=== PATIENT | female | born 1955 | race Caucasian/White ===

== ENCOUNTER → 2016-06-19 | Outpatient (CLI) | payer OTHER ==
[~2016-06-19] MED LIST: ASPIR 8181 MG PO; BREO INH; BUMEX 1MG TABLET1 MG PO; CARAFATE 1 GM TA1 GM PO; DIGOX125 MCG PO; DIOVAN40 MG PO; ENSURE LIQUID237 ML PO; ENSURE ORIGINA237 ML PO; ENTRESTO PO; FERROUS SULFAT325 M2 PO; FLOMAX 0.4 MG0.4 MG PO; FUROSEMIDE20 MG PO; HYDROCODON-ACE1 EAC2 PO; IMDUR ER TAB 3030 MG PO; INCRUSE ELLI62.5 MCG INH; ISOSORBIDE DINI30 MG PO; LASIX20 MG PO; LEVAQUIN750 MG PO; LIPITOR TAB 2020 MG PO; LORTAB 7.5-3251 EACH PO; MAGIC MOUTHWASH PO; MEGACE 400400 MG/10 PO; METOPROLOL TART50 MG PO; MYCOSTATIN100000 UTS PO; NITROSTAT 0.40.4 MG SL; OMEPRAZOLE40 MG PO; OMNICEF 300 MG300 MG PO; PREDNISONE10 MG PO; PROTONIX40 MG PO; RANEXA500 MG PO; REMERON 15 MG T15 MG PO; SPIRIVA18 MCG INH; SPIRONOLACTONE25 MG PO; THEOPHYLLINE400 MG PO; VENTOLIN HFA 66.7 GM INH; VENTOLIN/PROVE0.5 ML INH
== END ==
LOC: HEART 5 09:22
DX: I51.81 Takotsubo syndrome (principal); I20.9 Angina pectoris, unspecified; R06.02 Shortness of breath
CPT/HCPCS: 93306

== ENCOUNTER → 2016-07-02 | Outpatient (CLI) | payer OTHER ==
[2016-07-02 13:45] LABS: BUN/CREATININE RATIO 20 (0-10)
== END ==
LOC: LAB 12:16
PROVIDERS: Physician Assistant
DX: I10 Essential (primary) hypertension (principal); I25.10 Atherosclerotic heart disease of native coronary artery without angina pectoris; I42.0 Dilated cardiomyopathy; I50.22 Chronic systolic (congestive) heart failure; I51.81 Takotsubo syndrome; I95.9 Hypotension, unspecified; R55 Syncope and collapse; R53.83 Other fatigue; R00.2 Palpitations; R06.02 Shortness of breath
CPT/HCPCS: 36415; 80048; 80162; 83735; 84439; 84443; 84481

== ENCOUNTER → 2016-07-02 | Outpatient (CLI) | payer OTHER | LOC: HEART 5 13:25 | DX: R55 Syncope and collapse (principal); R00.2 Palpitations ==

== ENCOUNTER → 2016-07-16 | Outpatient (CLI) | payer OTHER | LOC: RT 11:42 | DX: R55 Syncope and collapse (principal); R00.2 Palpitations ==

== ENCOUNTER 2016-08-17 17:20 | Inpatient (IN) | payer OTHER ==
[~2016-08-17] VITALS: Ht 154.9 cm; Wt 39.5 kg
[2016-08-17] MEDS ORDERED: OMEPRAZOLE40 MG PO (17:51)
[2016-08-17] MEDS ORDERED: ISOSORBIDE DINI30 MG PO (17:51)
[2016-08-17] MEDS ORDERED: DIOVAN40 MG PO (17:52)
[2016-08-17] MEDS ORDERED: SPIRONOLACTONE25 MG PO (17:52)
[2016-08-17] MEDS ORDERED: VENTOLIN HFA 66.7 GM INH (17:53)
[2016-08-17] MEDS ORDERED: VENTOLIN/PROVE0.5 ML INH (17:55)
[2016-08-17] MEDS ORDERED: SPIRIVA18 MCG INH (17:56)
[2016-08-17] MEDS ORDERED: THEOPHYLLINE400 MG PO (17:57)
[2016-08-17] MEDS ORDERED: LASIX20 MG PO (17:57)
[2016-08-17] MEDS ORDERED: RANEXA500 MG PO (17:57)
[2016-08-17] MEDS ORDERED: REMERON 15 MG T15 MG PO (17:58)
[2016-08-17] MEDS ORDERED: BREO INH (17:59)
[2016-08-17] MEDS ORDERED: NITROSTAT 0.40.4 MG SL (18:00)
[2016-08-17 19:01] LABS: HEMOGLOBIN 11.1 gm/dl (12.3-15.3); RED BLOOD COUNT 3.62 M/UL (4.00-5.10); WHITE BLOOD COUNT 18.1 K/UL (4.5-11.0)
[2016-08-18 06:35] LABS: HEMOGLOBIN 11.8 gm/dl (12.3-15.3); RED BLOOD COUNT 3.86 M/UL (4.00-5.10); WHITE BLOOD COUNT 21.8 K/UL (4.5-11.0)
[2016-08-18 07:20] LABS: BUN/CREATININE RATIO 63 (0-10)
[2016-08-19 09:42] LABS: RED BLOOD COUNT 4.19 M/UL (4.00-5.10); WHITE BLOOD COUNT 17.3 K/UL (4.5-11.0)
[2016-08-19 10:01] LABS: BUN/CREATININE RATIO 98 (0-10)
[2016-08-21 09:22] LABS: HEMOGLOBIN 12.4 gm/dl (12.3-15.3); RED BLOOD COUNT 4.11 M/UL (4.00-5.10); WHITE BLOOD COUNT 13.4 K/UL (4.5-11.0)
[2016-08-21 09:42] LABS: BUN/CREATININE RATIO 84 (0-10)
[2016-08-21] MEDS ORDERED: ENSURE LIQUID237 ML PO (16:37)
[2016-08-21] MEDS ORDERED: MEGACE 400400 MG/10 PO (16:41)
[2016-08-21] MEDS ORDERED: PROTONIX40 MG PO (16:42)
[2016-08-21] MEDS ORDERED: PREDNISONE10 MG PO (16:43)
[2016-08-21] MEDS ORDERED: CARAFATE 1 GM TA1 GM PO (16:46)
[2016-08-21] MEDS ORDERED: SPIRIVA18 MCG INH (16:48)
[2016-08-21] MEDS ORDERED: LIPITOR TAB 2020 MG PO (16:48)
[2016-08-21] MEDS ORDERED: LORTAB 7.5-3251 EACH PO (16:49)
[2016-08-21] MEDS ORDERED: ASPIR 8181 MG PO (16:55)
[2016-09-24] MEDS ORDERED: BUMEX 1MG TABLET1 MG PO ×2 (19:12→19:24)
[2016-09-24] MEDS ORDERED: MAGIC MOUTHWASH PO (19:18)
[2016-09-24] MEDS ORDERED: BREO INH (19:22)
[2016-10-06] MEDS ORDERED: OMNICEF 300 MG300 MG PO (17:09)
[2016-10-08] MEDS ORDERED: MEGACE 400400 MG/10 PO (20:34)
== END 2016-08-21 18:50 | disposition home or self-care (01) | DRG 280 ==
LOC: PROG CARE 17:20 → M/S 08-20 21:56
PROVIDERS: ADMIT Emergency Medicine
DX: I21.4 Non-ST elevation (NSTEMI) myocardial infarction (principal); J96.21 Acute and chronic respiratory failure with hypoxia; G92 Toxic encephalopathy; E43 Unspecified severe protein-calorie malnutrition; J96.02 Acute respiratory failure with hypercapnia; J44.1 Chronic obstructive pulmonary disease with (acute) exacerbation; I50.22 Chronic systolic (congestive) heart failure; I42.9 Cardiomyopathy, unspecified; I11.0 Hypertensive heart disease with heart failure; I95.2 Hypotension due to drugs; T42.4X5A Adverse effect of benzodiazepines, initial encounter; T44.7X5A Adverse effect of beta-adrenoreceptor antagonists, initial encounter; Y92.230 Patient room in hospital as the place of occurrence of the external cause; K29.70 Gastritis, unspecified, without bleeding; R53.1 Weakness; E86.0 Dehydration; I25.10 Atherosclerotic heart disease of native coronary artery without angina pectoris; K21.9 Gastro-esophageal reflux disease without esophagitis; F17.210 Nicotine dependence, cigarettes, uncomplicated; R10.30 Lower abdominal pain, unspecified; R68.3 Clubbing of fingers; Z82.49 Family history of ischemic heart disease and other diseases of the circulatory system; Z99.81 Dependence on supplemental oxygen; Z80.3 Family history of malignant neoplasm of breast; Z80.0 Family history of malignant neoplasm of digestive organs; Z79.51 Long term (current) use of inhaled steroids
CPT/HCPCS: 36415; 36600; 71010; 71260; 80048; 80053; 80061; 82550; 82553; 82803; 83036; 83735; 84439; 84443; 84484; 85025; 85027; 93005; 93308; 94640; 94664; J1650; J2270; J2405; J2930; J7030; J7050; Q9962

== ENCOUNTER 2016-08-26 17:52 | Emergency (ER) | payer OTHER ==
[~2016-08-26 17:52] MED LIST changes: -BUMEX 1MG TABLET1 MG PO; -DIGOX125 MCG PO; -ENSURE ORIGINA237 ML PO; -ENTRESTO PO; -FERROUS SULFAT325 M2 PO; -FLOMAX 0.4 MG0.4 MG PO; -FUROSEMIDE20 MG PO; -HYDROCODON-ACE1 EAC2 PO; -IMDUR ER TAB 3030 MG PO; -INCRUSE ELLI62.5 MCG INH; -LEVAQUIN750 MG PO; -MAGIC MOUTHWASH PO; -METOPROLOL TART50 MG PO; -MYCOSTATIN100000 UTS PO; -OMNICEF 300 MG300 MG PO
[2016-08-26 18:55] LABS: HEMOGLOBIN 13.6 gm/dl (12.3-15.3); RED BLOOD COUNT 4.35 M/UL (4.00-5.10); WHITE BLOOD COUNT 23.2 K/UL (4.5-11.0)
[2016-08-26 19:07] LABS: BUN/CREATININE RATIO 52 (0-10)
[2016-09-24] MEDS ORDERED: BUMEX 1MG TABLET1 MG PO ×2 (19:12→19:24)
[2016-09-24] MEDS ORDERED: MAGIC MOUTHWASH PO (19:18)
[2016-09-24] MEDS ORDERED: BREO INH (19:22)
[2016-10-06] MEDS ORDERED: OMNICEF 300 MG300 MG PO (17:09)
[2016-10-08] MEDS ORDERED: MEGACE 400400 MG/10 PO (20:34)
== END 2016-08-26 22:38 | disposition home or self-care (01) ==
LOC: ER1 17:52
PROVIDERS: Emergency Medicine
DX: J44.9 Chronic obstructive pulmonary disease, unspecified (principal); I50.9 Heart failure, unspecified; I11.9 Hypertensive heart disease without heart failure
CPT/HCPCS: 36415; 36600; 71010; 80053; 82550; 82553; 82803; 83874; 83880; 84484; 85025; 93005; 94664; 96374; 96375; 99285; J1940; J1956

== ENCOUNTER 2016-08-27 17:50 | Inpatient (IN) | payer OTHER ==
[~2016-08-27] VITALS: Ht 162.6 cm; Wt 40.4 kg
[2016-08-28 03:40] LABS: BUN/CREATININE RATIO 55 (0-10)
[2016-08-28 03:46] LABS: HEMOGLOBIN 11.4 gm/dl (12.3-15.3); RED BLOOD COUNT 3.76 M/UL (4.00-5.10); WHITE BLOOD COUNT 19.1 K/UL (4.5-11.0)
--- NOTE | 2016-08-28 16:52 | NUR ---
REPORT TO DANIE CHRISTINA FOR TRANSFER TO ROOM [id number]
[2016-08-29 04:42] LABS: HEMOGLOBIN 10.3 gm/dl (12.3-15.3); WHITE BLOOD COUNT 19.9 K/UL (4.5-11.0)
[2016-08-29 04:44] LABS: RED BLOOD COUNT 3.37 M/UL (4.00-5.10)
[2016-08-30 04:39] LABS: HEMOGLOBIN 11.5 gm/dl (12.3-15.3); WHITE BLOOD COUNT 22.9 K/UL (4.5-11.0)
[2016-08-30 04:41] LABS: RED BLOOD COUNT 3.75 M/UL (4.00-5.10)
[2016-08-30 05:01] LABS: BUN/CREATININE RATIO 53 (0-10)
[2016-08-31 03:42] LABS: HEMOGLOBIN 10.9 gm/dl (12.3-15.3); RED BLOOD COUNT 3.57 M/UL (4.00-5.10); WHITE BLOOD COUNT 20.6 K/UL (4.5-11.0)
[2016-08-31 03:57] LABS: BUN/CREATININE RATIO 70 (0-10)
[2016-09-01 03:45] LABS: HEMOGLOBIN 11.2 gm/dl (12.3-15.3); RED BLOOD COUNT 3.7 M/UL (4.00-5.10)
[2016-09-01 04:10] LABS: BUN/CREATININE RATIO 77 (0-10)
[2016-09-01] MEDS ORDERED: ENSURE ORIGINA237 ML PO (16:39)
[2016-09-24] MEDS ORDERED: BUMEX 1MG TABLET1 MG PO ×2 (19:12→19:24)
[2016-09-24] MEDS ORDERED: MAGIC MOUTHWASH PO (19:18)
[2016-09-24] MEDS ORDERED: BREO INH (19:22)
[2016-10-06] MEDS ORDERED: OMNICEF 300 MG300 MG PO (17:09)
[2016-10-08] MEDS ORDERED: MEGACE 400400 MG/10 PO (20:34)
== END 2016-09-01 18:37 | disposition home or self-care (01) | DRG 190 ==
LOC: PROG CARE 17:50 → MED SURG 4 20:59 → PROG CARE 20:59 → MED SURG 4 08-28 16:40
PROVIDERS: Internal Medicine; Physician Assistant Medical; ADMIT Internal Medicine
DX: J44.1 Chronic obstructive pulmonary disease with (acute) exacerbation (principal); J96.21 Acute and chronic respiratory failure with hypoxia; J96.22 Acute and chronic respiratory failure with hypercapnia; I51.81 Takotsubo syndrome; E44.0 Moderate protein-calorie malnutrition; Z99.81 Dependence on supplemental oxygen; I10 Essential (primary) hypertension; K21.9 Gastro-esophageal reflux disease without esophagitis; I25.10 Atherosclerotic heart disease of native coronary artery without angina pectoris; Z87.891 Personal history of nicotine dependence; Z79.82 Long term (current) use of aspirin; Z79.899 Other long term (current) drug therapy; D72.828 Other elevated white blood cell count; D64.9 Anemia, unspecified; R13.14 Dysphagia, pharyngoesophageal phase; K59.09 Other constipation; R78.89 Finding of other specified substances, not normally found in blood
CPT/HCPCS: 36415; 71010; 74000; 80048; 80053; 80162; 81206; 81207; 82607; 82728; 82747; 83540; 83550; 83615; 83735; 83921; 85025; 85027; 85610; 89055; 93005; 94640; 94664; J1650; J2920; J7030

== ENCOUNTER 2016-09-03 08:06 | Observation (INO) | payer OTHER ==
[~2016-09-03] VITALS: Ht 162.6 cm; Wt 40.4 kg
[~2016-09-03 08:06] MED LIST changes: +ENSURE ORIGINA237 ML PO
[2016-09-03] MEDS ORDERED: MYCOSTATIN100000 UTS PO (11:48)
[2016-09-03] MEDS ORDERED: LEVAQUIN750 MG PO (11:49)
[2016-09-03] MEDS ORDERED: PREDNISONE10 MG PO (11:52)
[2016-09-03] MEDS ORDERED: METOPROLOL TART50 MG PO (17:51)
[2016-09-03] MEDS ORDERED: DIGOX125 MCG PO (17:58)
[2016-09-24] MEDS ORDERED: BUMEX 1MG TABLET1 MG PO ×2 (19:12→19:24)
[2016-09-24] MEDS ORDERED: MAGIC MOUTHWASH PO (19:18)
[2016-09-24] MEDS ORDERED: BREO INH (19:22)
[2016-10-06] MEDS ORDERED: OMNICEF 300 MG300 MG PO (17:09)
[2016-10-08] MEDS ORDERED: MEGACE 400400 MG/10 PO (20:34)
== END 2016-09-03 18:25 | disposition home or self-care (01) ==
LOC: M/S 08:39
PROVIDERS: ADMIT Emergency Medicine
DX: R07.9 Chest pain, unspecified (principal); J44.9 Chronic obstructive pulmonary disease, unspecified; I11.0 Hypertensive heart disease with heart failure; I50.9 Heart failure, unspecified; K21.9 Gastro-esophageal reflux disease without esophagitis; I25.10 Atherosclerotic heart disease of native coronary artery without angina pectoris; Z87.891 Personal history of nicotine dependence; Z79.82 Long term (current) use of aspirin; Z79.899 Other long term (current) drug therapy
CPT/HCPCS: G0378; G0379

== ENCOUNTER 2016-12-01 10:20 | Observation (INO) | payer OTHER ==
[~2016-12-01] VITALS: Ht 162.6 cm; Wt 45.9 kg
[~2016-12-01 10:20] MED LIST changes: +BUMEX 1MG TABLET1 MG PO; +DIGOX125 MCG PO; +LEVAQUIN750 MG PO; +MAGIC MOUTHWASH PO; +METOPROLOL TART50 MG PO; +MYCOSTATIN100000 UTS PO; +OMNICEF 300 MG300 MG PO
[2016-12-01 11:15] LABS: HEMOGLOBIN 12.4 gm/dl (12.3-15.3); RED BLOOD COUNT 4.09 M/UL (4.00-5.10); WHITE BLOOD COUNT 14.2 K/UL (4.5-11.0)
[2016-12-01 11:36] LABS: BUN/CREATININE RATIO 53 (0-10)
[2016-12-01] MEDS ORDERED: INCRUSE ELLI62.5 MCG INH (18:47)
[2016-12-01] MEDS ORDERED: THEOPHYLLINE400 MG PO (18:49)
[2016-12-01] MEDS ORDERED: ENTRESTO PO (18:51)
[2016-12-01] MEDS ORDERED: LORTAB 7.5-3251 EACH PO (18:56)
[2016-12-01] MEDS ORDERED: FLOMAX 0.4 MG0.4 MG PO (18:57)
[2016-12-01] MEDS ORDERED: FERROUS SULFAT325 M2 PO (18:58)
[2016-12-01] MEDS ORDERED: IMDUR ER TAB 3030 MG PO (19:00)
[2016-12-01] MEDS ORDERED: HYDROCODON-ACE1 EAC2 PO (19:54)
[2016-12-01] MEDS ORDERED: MEGACE 400400 MG/10 PO (19:55)
[2016-12-02 05:53] LABS: HEMOGLOBIN 12.3 gm/dl (12.3-15.3); RED BLOOD COUNT 4.02 M/UL (4.00-5.10)
[2016-12-02 06:14] LABS: BUN/CREATININE RATIO 33 (0-10)
== END 2016-12-02 11:00 | disposition home or self-care (01) ==
LOC: ER1 10:20 → ZEROF 12:05 → PROG CARE 17:11
PROVIDERS: Emergency Medicine; ADMIT Internal Medicine
DX: R07.9 Chest pain, unspecified (principal); I42.8 Other cardiomyopathies; I25.10 Atherosclerotic heart disease of native coronary artery without angina pectoris; I11.0 Hypertensive heart disease with heart failure; I50.22 Chronic systolic (congestive) heart failure; K21.9 Gastro-esophageal reflux disease without esophagitis; J44.9 Chronic obstructive pulmonary disease, unspecified; Z87.891 Personal history of nicotine dependence; Z82.49 Family history of ischemic heart disease and other diseases of the circulatory system; Z79.82 Long term (current) use of aspirin; Z79.899 Other long term (current) drug therapy; Z99.81 Dependence on supplemental oxygen
CPT/HCPCS: 36415; 71010; 80053; 80162; 82550; 82553; 83735; 83874; 83880; 84443; 84484; 85025; 85610; 85730; 93005; 94640; 94664; 96372; 96374; 96375; 99285; G0378; J1650; J2270; Q2039

== ENCOUNTER 2016-12-24 19:21 | Observation (INO) | payer OTHER ==
[~2016-12-24] VITALS: Ht 162.6 cm; Wt 45.8 kg
[~2016-12-24 19:21] MED LIST changes: +ENTRESTO PO; +FERROUS SULFAT325 M2 PO; +FLOMAX 0.4 MG0.4 MG PO; +HYDROCODON-ACE1 EAC2 PO; +IMDUR ER TAB 3030 MG PO; +INCRUSE ELLI62.5 MCG INH
[2016-12-24] MEDS ORDERED: FUROSEMIDE20 MG PO (22:30)
== END 2016-12-25 21:10 | disposition home or self-care (01) ==
LOC: MED SURG 4 22:08
PROVIDERS: ADMIT Internal Medicine
DX: R07.89 Other chest pain (principal); I25.5 Ischemic cardiomyopathy; I25.10 Atherosclerotic heart disease of native coronary artery without angina pectoris; I25.2 Old myocardial infarction; I11.0 Hypertensive heart disease with heart failure; I50.22 Chronic systolic (congestive) heart failure; J96.02 Acute respiratory failure with hypercapnia; J44.9 Chronic obstructive pulmonary disease, unspecified; K21.9 Gastro-esophageal reflux disease without esophagitis; E78.5 Hyperlipidemia, unspecified; Z87.891 Personal history of nicotine dependence; Z87.11 Personal history of peptic ulcer disease; Z79.82 Long term (current) use of aspirin; Z79.51 Long term (current) use of inhaled steroids; Z79.899 Other long term (current) drug therapy; Z95.5 Presence of coronary angioplasty implant and graft
CPT/HCPCS: 36415; 82550; 82553; 84484; 85379; 93005; 94640; 94664; 96374; G0378; G0379; J2270